=== PATIENT | female | born 1995 | race Caucasian/White ===

== ENCOUNTER → 2016-04-10 | Outpatient (CLI) | payer BC ==
--- NOTE | 2016-04-10 10:53 | DX ---
Right Index Finger 3 Views History: Slammed finger in door this morning, distal pain. Comparison: None available. Findings: There is a nondisplaced fracture of the tuft of the distal phalanx of the index finger. Ali gnment is normal. Bone mineralization is normal. There is no significant degenerative change. There i s no focal soft tissue swelling. Impression: Nondisplaced fracture of the tuft of the distal phalanx.
== END ==
LOC: BMCIMAGING 10:33
PROVIDERS: ATTEND Family Medicine
DX: S62.660A Nondisplaced fracture of distal phalanx of right index finger, initial encounter for closed fracture (principal)

== ENCOUNTER → 2016-05-04 | Outpatient (CLI) | payer BC | LOC: BMCIMAGING 08:36 | PROVIDERS: ATTEND Physician Assistant | DX: S69.91XA Unspecified injury of right wrist, hand and finger(s), initial encounter (principal); X58.XXXA Exposure to other specified factors, initial encounter ==

== ENCOUNTER → 2016-08-09 | Outpatient (CLI) | payer BC | LOC: BMCIMAGING 12:39 | PROVIDERS: ATTEND Internal Medicine Endocrinology, Diabetes & Metabolism | DX: E04.9 Nontoxic goiter, unspecified (principal) | CPT/HCPCS: 76536-PO ==